=== PATIENT | female | born 1960 | race Caucasian/White ===

== ENCOUNTER 2025-06-27 11:26 | Outpatient (CLI) | payer MEDICARE, SELFPAY ==
--- NOTE | ~2025-06-27 | US_ITS ---
US soft tissue head and neck 06/27/2025 11:45 Indication: History of melanoma. Right posterior neck lump. Procedure: Limited soft tissue ultrasound of the right neck in the area palpable concern. Additional images of the left neck performed. Comparison: No prior studies for comparison. Findings: There is a lymph node in the right neck posteriorly corresponding to the area palpable concern measuring 12 x 9 x 5 mm with cortical thickening and effacement of the fatty hilum, suspicious for pathologic lymph node. No other masses identified. No abnormal fluid collections. No abnormalities of the left neck are identified. Impression: 1: Atypical right neck lymph node in the area palpable concern with effacement of the fatty hilum measuring up to 12 mm. Given the clinical history, metastatic disease is not excluded. Reviewed, dictated and finalized at location O. [employer]ACHINE OPERATOR Impression: 1: Atypical right neck lymph node in the area palpable concern with effacement of the fatty hilum measuring up to 12 mm. Given the clinical history, metastati c disease is not excluded.
== END 2025-06-27 11:27 | disposition home or self-care (01) ==
LOC: GOSHIMG 11:27
DX: R59.0 Localized enlarged lymph nodes (principal); Z85.820 Personal history of malignant melanoma of skin
CPT/HCPCS: 76536